=== PATIENT | male | born 1985 | race Asian ===

== ENCOUNTER 2020-02-03 21:57 | Emergency (ER) | payer BC ==
[~2020-02-03] VITALS: Ht 162.6 cm; Wt 65.8 kg
[2020-02-03 22:02] VITALS: BP_SYST 125
--- NOTE | 2020-02-03 22:02 | NUR ---
Patient to ER bed 7 to gown for evaluation. Side rails up. Report given to MARIAMA Nguyen / MARIAMA Ordaz.
--- NOTE | 2020-02-03 22:10 | NUR ---
Note undone in EDM - 02/03/20 at 2255 by ELIUD Pt. arrived to the ED ambulatory, A&Ox4 with c/o intermittent 10/10 LLQ pain that radiates upward. Patient is afebrile, denies n/v/d, burning, urgency, frequency and other symptoms. Pt. reports normal and regular urinary and bowel patterns. Skin is warm, dry, and intact. Cap refill <3 seconds.
--- NOTE | 2020-02-03 22:10 | NUR ---
Pt. arrived to the ED ambulatory, A&Ox4 with c/o intermittent 10/10 LLQ pain that radiates upward and began approx 3 weeks ago. Patient is afebrile, denies n/v/d, burning, urgency, frequency and other symptoms. Pt. reports normal and regular urinary and bowel patterns. Skin is warm, dry, and intact. Cap refill <3 seconds. VSS. Will continue to monitor.
--- NOTE | 2020-02-03 22:20 | NUR ---
20G Angiocath placed to the left AC laterally.
--- NOTE | 2020-02-03 22:40 | NUR ---
at bedside examining pt.
[2020-02-03 22:47] LABS: BILIRUBIN,URINE NEGATIVE (NEGATIVE); BLOOD, URINE NEGATIVE (NEGATIVE); CLARITY/URINE CLEAR (CLEAR); COLOR,URINE YELLOW (YELLOW); GLUCOSE,URINE NEGATIVE (NEGATIVE); KETONES,URINE NEGATIVE (NEGATIVE); LEUKOCYTE ESTERASE ,URINE NEGATIVE (NEGATIVE); NITRITE, URINE NEGATIVE (NEGATIVE); PROTEIN URINE NEGATIVE (NEGATIVE)
[2020-02-03 22:48] LABS: BASOPHILS % (AUTO) 0.5 % (0.0-2.0); EOSINOPHILS # (AUTO) 0.1 K/uL (0.0-0.4); EOSINOPHILS % (AUTO) 3.1 % (0.0-4.0); HEMATOCRIT 42.2 % (36-54); HEMOGLOBIN 14.3 g/dL (14.0-18.0); LYMPHOCYTES # (AUTO) 1.6 K/uL (1.0-5.5); LYMPHOCYTES % (AUTO) 34.6 % (20.5-51.5); MEAN CORPUSCULAR HEMOGLOBIN 32 pg (27-31); MEAN CORPUSCULAR HGB CONC 34 % (32-36); MEAN CORPUSCULAR VOLUME 95 fL (79.0-98.0); MONOCYTES # (AUTO) 0.6 K/uL (0.0-1.0); MONOCYTES % (AUTO) 12.4 % (1.7-9.3); NEUTROPHILS # (AUTO) 2.2 K/uL (1.8-7.7); NEUTROPHILS % (AUTO) 49.4 % (40.0-70.0); PLATELET COUNT (AUTO) 175 K/uL (130-430); RED BLOOD CELL COUNT(AUTO) 4.43 MIL/uL (4.2-6.2); RED CELL DISTRIBUTION WIDTH 13.1 % (9.0-15.0); WHITE BLOOD COUNT (AUTO) 4.6 K/uL (4.8-10.8)
[2020-02-03 22:59] LABS: CALCIUM 8.6 mg/dL (8.4-11.0); CREATININE 1.38 mg/dL (0.55-1.30); POTASSIUM 3.4 mmol/L (3.5-5.1)
[2020-02-03 23:03] LABS: PROTHROMBIN TIME 9.7 SECS (9.5-12.5)
[2020-02-03 23:04] LABS: TOTAL BILIRUBIN 0.4 mg/dL (0.0-1.0)
--- NOTE | 2020-02-03 23:08 | NUR ---
Pt. taken off unit to radiology accompanied by [employer] via [employer].
--- NOTE | 2020-02-03 23:30 | NUR ---
Pt. back on unit from radiology.
--- NOTE | 2020-02-04 00:25 | NUR ---
Patient denies pain, does not appear to be in distress, and is resting at this time. VSS.
[2020-02-04 00:42] VITALS: BP_SYST 119
--- NOTE | 2020-02-04 00:42 | NUR ---
Patient given written and verbal discharge instructions and verbalizes understanding. ER MD discussed with patient the results and treatment provided. Patient in stable condition. ID arm band removed. IV catheter removed intact and dressing applied, no active bleeding. Rx of [place] and Protonix given. Patient educated on pain management and to follow up with PMD. Pain Scale 0/10. Opportunity for questions provided and answered. Medication side effect fact sheet provided.
== END 2020-02-04 00:42 | disposition home or self-care (01) ==
LOC: SED 21:57
DX: K29.70 Gastritis, unspecified, without bleeding (principal); R10.32 Left lower quadrant pain
CPT/HCPCS: 36415; 80053; 81003; 82150-TC; 83690-TC; 85025; 85610-TC; 99284

== ENCOUNTER 2021-01-17 18:38 | Emergency (ER) | payer BC ==
[~2021-01-17] VITALS: Ht 165.1 cm; Wt 68.0 kg
[2021-01-17 18:50] VITALS: BP_SYST 118
[2021-01-17] MEDS ORDERED: IBUP-1969 PO (19:40)
[2021-01-17 20:13] VITALS: BP_SYST 102
== END 2021-01-17 20:13 | disposition home or self-care (01) ==
LOC: SED 18:38
DX: S50.11XA Contusion of right forearm, initial encounter (principal); V11.0XXA Pedal cycle driver injured in collision with other pedal cycle in nontraffic accident, initial encounter; Y93.89 Activity, other specified; Y92.89 Other specified places as the place of occurrence of the external cause; Y99.8 Other external cause status
CPT/HCPCS: 73090; 99283

== ENCOUNTER 2022-06-09 11:29 | Emergency (ER) | payer BC ==
[~2022-06-09] VITALS: Ht 165.1 cm; Wt 68.0 kg
[~2022-06-09 11:29] MED LIST: IBUP-1969 PO
--- NOTE | 2022-06-09 11:35 | NUR ---
Patient to ER bed 04 to gown for evaluation. Side rails up.
[2022-06-09 11:38] VITALS: BP_SYST 124
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
[2022-06-09] MEDS ORDERED: IBUP-1969 PO (15:19)
--- NOTE | 2022-06-09 15:23 | NUR ---
Patient has been seen by MD and evaluated again after xrays. Spoke with patient and asked if he needed anything at this time. Patient states he is ok at this time.
--- NOTE | 2022-06-09 15:25 | NUR ---
Patient given written and verbal discharge instructions and verbalizes understanding. ER MD discussed with patient the results and treatment provided. Patient in stable condition. ID arm band removed. Patient educated on pain management and to follow up with PMD. Pain improved since arrival. Opportunity for questions provided and answered. Medication side effect fact sheet provided.
== END 2022-06-09 15:25 | disposition home or self-care (01) ==
LOC: SED 11:29
DX: S13.4XXA Sprain of ligaments of cervical spine, initial encounter (principal); S23.3XXA Sprain of ligaments of thoracic spine, initial encounter; S00.83XA Contusion of other part of head, initial encounter; Z79.899 Other long term (current) drug therapy; V13.4XXA Pedal cycle driver injured in collision with car, pick-up truck or van in traffic accident, initial encounter; Y93.89 Activity, other specified; Y92.89 Other specified places as the place of occurrence of the external cause; Y99.8 Other external cause status
CPT/HCPCS: 70450-TC; 70486-TC; 72125-TC; 76376; 99284